=== PATIENT | male | born 1990 | race Caucasian/White ===

== ENCOUNTER 2019-03-07 06:41 | Day surgery (SDC) | payer OTHER ==
[2019-03-07] VITALS (13 sets, daily range): BP systolic 107–152; BP diastolic 74–91; PULSE 76–104; RESP 16–24; Ht 165.1 cm; Wt 69.7 kg
[~2019-03-07] VITALS: Ht 165.1 cm; Wt 69.7 kg
[2019-03-07] MEDS ORDERED: LIDOCAINE 1%/EPI (1:100,000) (MDV) 20 ML ONE (08:36)
[2019-03-07] MEDS ORDERED: OXYMETAZOLINE 0.05% NASAL SPRAY (15 ML) NASAL ONE (08:37)
[2019-03-07] MEDS ORDERED: LIDOCAINE 2% (SDV) 5 ML INJ ONE (08:54)
[2019-03-07] MEDS ORDERED: DEXAMETHASONE 4 MG/ML 5 ML INJ ONE (08:54)
[2019-03-07] MEDS ORDERED: ONDANSETRON 4 MG INJ ONE (08:54)
[2019-03-07] MEDS ORDERED: SEVOFLURANE 15 MIN ONE (08:54)
[2019-03-07] MEDS ORDERED: SUCCINYLCHOLINE CHLORIDE 100 MG/5 ML SYG IV ONE (08:54)
[2019-03-07] MEDS ORDERED: ROCURONIUM 50 MG INJ ONE (08:54)
[2019-03-07] MEDS ORDERED: MIDAZOLAM 1 MG/ML 2 ML INJ ONE (08:54)
[2019-03-07] MEDS ORDERED: PROPOFOL 200 MG INJ ONE (08:54)
[2019-03-07] MEDS ORDERED: HYDROmorphONE 1 MG/5 ML IV SYRINGE IV PRN (09:00)
[2019-03-07] MEDS ORDERED: MEPERIDINE 25 MG INJ IV PRN (09:00)
[2019-03-07] MEDS ORDERED: FENTAnyl 50 MCG/ML VIAL IV PRN (09:00)
[2019-03-07] MEDS ORDERED: ONDANSETRON 4 MG INJ IV PRN (09:00)
[2019-03-07] MEDS ORDERED: LABETALOL HCL 20MG INJ IV PRN (09:00)
[2019-03-07] MEDS ORDERED: EPHEDrine 25 MG/5 ML SYG IV PRN (09:00)
[2019-03-07] MEDS ORDERED: MIDAZOLAM 1 MG/ML 2 ML INJ IV PRN (09:00)
[2019-03-07] MEDS ORDERED: hydrALAzine 20 MG INJ IV PRN (09:00)
[2019-03-07] MEDS ORDERED: OXYCODONE/ACETAMINOPHEN (5/325) TAB PO PRN (09:00)
[2019-03-07] MEDS ORDERED: DIPHENHYDRAMINE 50 MG INJ IV PRN (09:00)
[2019-03-07] MEDS ORDERED: SUGAMMADEX SODIUM 200 MG/2 ML VIAL IV ONE (11:03)
[2019-03-07] MEDS: HYDROmorphONE 1 MG/5 ML IV SYRINGE IV PRN ×2 (11:29→11:58)
== END 2019-03-07 13:35 | disposition home or self-care (01) ==
LOC: SDS 06:41
PROVIDERS: ATTEND Otolaryngology
DX: J34.2 Deviated nasal septum (principal); J34.3 Hypertrophy of nasal turbinates; J32.9 Chronic sinusitis, unspecified
CPT/HCPCS: 88300; 88304; J1100; J1170; J2250; J2405; J3010